=== PATIENT | male | born 1965 | race Caucasian/White ===

== ENCOUNTER 2018-02-28 11:27 | Emergency (ER) | payer OTHER ==
[2018-02-28 11:58] LABS: PLATELET COUNT 317 10^3/uL (150-400)
[2018-02-28] MEDS ORDERED: TAMSULOSIN HCL 0.4 MG CAP PO ONE (13:43)
[2018-02-28] MEDS ORDERED: KETOROLAC 30 MG/1 ML SDV IVP ONE (13:43)
--- NOTE | 2018-02-28 13:46 | EDPHY ---
H & P Time Seen by Provider: 02/28/18 12:24 HPI/ROS: CHIEF COMPLAINT: Abdominal pain HISTORY OF PRESENT ILLNESS: 52-year-old male presents to the emergency department with sudden onset of left lower quadrant abdominal pain that began after he had a bike ride. Patient denies any known trauma or injury. He felt fine while he was riding his bike. He denies pain in his chest or difficulty breathing. Denies any flank pain. Denies any radiation of pain in his groin or down his legs. No vomiting or diarrhea. No fevers or chills. No urinary symptoms. REVIEW OF SYSTEMS: Constitutional: No fever, no chills. Eyes: No double or blurry vision. ENT: No sore throat. Respiratory: No cough, no shortness of breath. Cardiac: No chest pain. Gastrointestinal: Abdominal pain as above. No vomiting or diarrhea. Genitourinary: No dysuria. Musculoskeletal: No neck or back pain. Skin: No rashes. Neurological: No headache. Past Medical/Surgical History: Negative Social History: Smoking Status: Never smoked Physical Exam: General Appearance: Alert, no distress. Eyes: Pupils equal and round. Extraocular motions are all intact. ENT: Mouth: Mucous membranes moist. Respiratory: No wheezing, rhonchi, or rales, lungs are clear to auscultation. Cardiovascular: Regular rate and rhythm. Gastrointestinal: Abdomen is soft and nontender, no masses, no rebound or guarding, bowel sounds normal. Positive CVA tenderness on the left, none on the right. Neurological: Alert and oriented x 3, cranial nerves II through XII grossly intact Skin: Warm and dry, no rashes. Musculoskeletal: Nontender to palpate along the cervical, thoracic or lumbar spine. Neck is supple. Extremities: Full range of motion and no peripheral edema. Psychiatric: Patient is oriented X 3, there is no agitation. Constitutional: Initial Vital Signs Temperature (C) 36.8 C 02/28/18 11:31 Heart Rate 63 02/28/18 11:31 Respiratory Rate 28 H 02/28/18 11:31 Blood Pressure 113/80 02/28/18 11:31 O2 Sat (%) 100 02/28/18 11:31 O2 Delivery Mode Room Air Allergies/Adverse Reactions: teclin Allergy (Intermediate, Uncoded 02/28/18 11:30) Hives Home Medications: Medication Instructions Recorded Tamsulosin HCl [Flomax] 0.4 mg PO DAILY #10 cap 02/28/18 Medical Decision Making - Diagnostics Imaging Results: Imaging Impressions Abdomen/Pelvis CT 02/28/18 12:42 Impression: 1. Mild left-sided hydronephrosis secondary to a 2.5 mm left UPJ calculus. 2. Mild bilateral nephrolithiasis with a few nonobstructive 1 mm calculi bilaterally. 3. Mild to moderate disk bulge at L4-L5 with possible left paracentral protrusion. Attention: This CT examination is specifically designed to evaluate patients who are clinically suspected of having acute obstructive uropathy. This examination does not use radiographic contrast, and as such, provides only a limited evaluation of the abdomen, pelvis and retroperitoneum. If there is further clinical suspicion for pathological conditions other than obstructive uropathy, a complete CT evaluation of the abdomen and pelvis utilizing intravenous, oral, and rectal contrast should be considered. Findings discussed with Marie Gaines PA-C at 13:10 hour, 02/28/2018. Imaging: Discussed imaging studies w/ teacher physically impaired Radiologist ED Course/Re-evaluation: 52-year-old male presents emergency department with left-sided abdominal pain which is now resolved. He does however have positive CVA tenderness on the left with a large amount of blood in his urine. I was concerned about possible kidney stone. I discussed the pros and cons of CT imaging of the abdomen and pelvis including radiation exposure the patient agrees. CT imaging of the abdomen and pelvis without contrast reveals a 2.5 mm calculi in the left UPJ with mild hydronephrosis. He also has 2-3 stones measuring 1 mm in both kidneys. Patient was given IV normal saline. His laboratory studies including creatinine were normal. Patient also received 30 mg of IV Toradol and 0.5 mg of oral Flomax. The case was discussed with Dr. Macarena Dutton, secondary supervising physician , who did not directly evaluate the patient but agrees with treatment and plan. Differential Diagnosis: Including but not limited to kidney stone, hernia, diverticulitis, urinary tract infection, pyelonephritis, muscular back pain - Data Points Laboratory Results: Laboratory Results 02/28/18 11:45 02/28/18 11:45 02/28/18 02/28/18 02/28/18 12:27 12:00 11:45 WBC RBC Hgb POC Hgb 16.0 gm/dL gm/dL (13.7-17.5) Hct POC Hct 47 % % (40-51) MCV MCH MCHC RDW Plt Count MPV Neut % (Auto) Lymph % (Auto) [place] % (Auto) Eos % (Auto) Baso % (Auto) Nucleat RBC Rel Count Absolute Neuts (auto) Absolute Lymphs (auto) Absolute Monos (auto) Absolute Eos (auto) Absolute Basos (auto) Absolute Nucleated RBC Immature Gran % Immature Gran # POC Sodium 140 mEq/L mEq/L (135-145) Sodium 140 mEq/L mEq/L (135-145) POC Potassium 3.2 mEq/L L mEq/L (3.3-5.0) Potassium 3.6 mEq/L mEq/L (3.3-5.0) POC Chloride 103 mEq/L mEq/L (97-110) Chloride 103 mEq/L mEq/L (97-110) Carbon Dioxide 20 mEq/l L mEq/l (22-31) Anion Gap 17 mEq/L H mEq/L (8-16) POC BUN 19 mg/dL mg/dL (7-23) BUN 19 mg/dL mg/dL (7-23) Creatinine 0.8 mg/dL mg/dL (0.7-1.3) POC Creatinine 0.9 mg/dL mg/dL (0.7-1.3) Estimated GFR > 60 Glucose 126 mg/dL H mg/dL (70-100) POC Glucose 138 mg/dL H mg/dL (70-100) Calcium 9.5 mg/dL mg/dL (8.5-10.4) Urine Color YELLOW Urine Appearance HAZY Urine pH 7.0 (5.0-7.5) Ur Specific [place] 1.015 (1.002-1.030) Urine Protein 1+ H (NEGATIVE) Urine Ketones NEGATIVE (NEGATIVE) Urine Blood 3+ H (NEGATIVE) Urine Nitrate NEGATIVE (NEGATIVE) Urine Bilirubin NEGATIVE (NEGATIVE) Urine Urobilinogen NEGATIVE EU EU (0.2-1.0) Ur Leukocyte Esterase NEGATIVE (NEGATIVE) Urine RBC 50-182 /hpf H /hpf (0-3) Urine WBC 15-25 /hpf H /hpf (0-3) Ur Epithelial Cells NONE SEEN /lpf /lpf (NONE-1+) Urine Glucose NEGATIVE (NEGATIVE) 02/28/18 11:45 WBC 9.18 10^3/uL 10^3/uL (3.80-9.50) RBC 5.15 10^6/uL 10^6/uL (4.40-6.38) Hgb 16.2 g/dL g/dL (13.7-17.5) POC Hgb Hct 44.5 % % (40.0-51.0) POC Hct MCV 86.4 fL fL (81.5-99.8) MCH 31.5 pg pg (27.9-34.1) MCHC 36.4 g/dL g/dL (32.4-36.7) RDW 12.2 % % (11.5-15.2) Plt Count 317 10^3/uL 10^3/uL (150-400) MPV 8.8 fL fL (8.7-11.7) Neut % (Auto) 61.9 % % (39.3-74.2) Lymph % (Auto) 28.8 % % (15.0-45.0) [place] % (Auto) 7.5 % % (4.5-13.0) Eos % (Auto) 0.7 % % (0.6-7.6) Baso % (Auto) 0.9 % % (0.3-1.7) Nucleat RBC Rel Count 0.0 % % (0.0-0.2) Absolute Neuts (auto) 5.69 10^3/uL 10^3/uL (1.70-6.50) Absolute Lymphs (auto) 2.64 10^3/uL 10^3/uL (1.00-3.00) Absolute Monos (auto) 0.69 10^3/uL 10^3/uL (0.30-0.80) Absolute Eos (auto) 0.06 10^3/uL 10^3/uL (0.03-0.40) Absolute Basos (auto) 0.08 10^3/uL 10^3/uL (0.02-0.10) Absolute Nucleated RBC 0.00 10^3/uL 10^3/uL (0-0.01) Immature Gran % 0.2 % % (0.0-1.1) Immature Gran # 0.02 10^3/uL 10^3/uL (0.00-0.10) POC Sodium Sodium POC Potassium Potassium POC Chloride Chloride Carbon Dioxide Anion Gap POC BUN BUN Creatinine POC Creatinine Estimated GFR Glucose POC Glucose Calcium Urine Color Urine Appearance Urine pH Ur Specific [place] Urine Protein Urine Ketones Urine Blood Urine Nitrate Urine Bilirubin Urine Urobilinogen Ur Leukocyte Esterase Urine RBC Urine WBC Ur Epithelial Cells Urine Glucose Medications Given: Discontinued Medications Ketorolac Tromethamine (Toradol) 30 mg IVP EDNOW ONE Stop: 02/28/18 13:44 Last Admin: 02/28/18 14:02 Dose: 30 mg Tamsulosin HCl (Flomax) 0.4 mg PO EDNOW ONE Stop: 02/28/18 13:44 Last Admin: 02/28/18 14:03 Dose: 0.4 mg Point of Care Test Results: Chemistry 02/28/18 12:00 POC Sodium 140 mEq/L mEq/L (135-145) POC Potassium 3.2 mEq/L L mEq/L (3.3-5.0) POC Chloride 103 mEq/L mEq/L (97-110) POC BUN 19 mg/dL mg/dL (7-23) POC Creatinine 0.9 mg/dL mg/dL (0.7-1.3) POC Glucose 138 mg/dL H mg/dL (70-100) ISTAT H&H 02/28/18 12:00 POC Hgb 16.0 gm/dL gm/dL (13.7-17.5) POC Hct 47 % % (40-51) Departure - Departure Disposition: Home, Routine, Self-Care Clinical Impression: Kidney stone on left side Condition: Good Instructions: Kidney Stones (ED) Additional Instructions: Flomax daily until stone passes. Strainer urine. Drink plenty of fluids. Follow up with urologist as discussed. Return to the emergency department if you have difficulty urinating, recurring worsening pain, vomiting, fever, or if you feel worse in any way. Referrals: Wolf Nicole MD [Medical Doctor] - 5-7 days, call for appt. (Urologist on-call ) Prescriptions: Tamsulosin HCl [Flomax] 0.4 mg PO DAILY #10 cap
[2018-02-28 14:14] VITALS: BP 104/70
== END 2018-02-28 14:14 | disposition home or self-care (01) ==
DX: N20.0 Calculus of kidney (principal)
CPT/HCPCS: 82435-PO; 82565-PO; 82947-PO; 84132-PO; 84295-PO; 84520-PO; 85014-PO; 96374; J1885